=== PATIENT | female | born 1965 | race Caucasian/White ===

== ENCOUNTER 2021-06-11 09:04 | Emergency (ER) | payer OTHER ==
[~2021-06-11] VITALS: Ht 170.2 cm; Wt 58.1 kg
[2021-06-11 09:30] VITALS: BP 147/80
[2021-06-11 09:54] VITALS: BP 143/63
[2021-06-11 11:00] VITALS: BP 135/69
--- NOTE | 2021-06-11 11:39 | ER.PDOC ---
General Chief Complaint: Home Positive COVID test Stated Complaint: COUGH/CONGESTION Time seen by MD: 11:32 Source: patient Exam Limitations: no limitations History of Present Illness Initial Comments Cough and congestion for 3 days. Patient had a home positive Covid test and is requesting monoclonal antibody infusion. No fever, chills or shortness of br eath. Timing/Duration: gradual Severity: moderate Associated Symptoms: runny nose, cough Constitutional: no symptoms reported EENTM: see HPI Respiratory: see HPI Cardiovascular: no symptoms reported Gastrointestinal: no symptoms reported All Other Systems: Reviewed and Negative Past Medical History Medical History: other Surgical History: no surgical history Family History Significant Family History: no pertinent family hx Social History Smoking: non-smoker Alcohol Use: none Drug Use: none Physical Exam General Appearance: alert, no distress Nose: nose nml Throat: pharynx nml, airway nml Neck: nml inspection, supple Respiratory: no resp.distress, breath sounds nml Abdomen: non-tender, no organomegaly CVS: reg rate & rhythm, heart sounds nml Skin: color nml, no rash, warm/dry Extremities: non-tender, nml ROM, no pedal edema NEURO/PSYCH: oriented x 3, CN's nml as tested, motor nml, sensation nml, mood/a ffect nml Results/Orders Results/Orders Orders - LYLE VALENTE MD Covid19 Antigen Varsha Ramona (06/11/21 09:54) Covid Resp Lundberg (06/11/21 10:33) Ondansetron Hcl/Pf (Zofran) (06/11/21 11:54) Bamlanivimab (Bamlanivimab (Eua))... (06/11/21 12:00) Vital Signs Date Time Temp Pulse Resp B/P (MAP) Pulse Ox O2 Delivery O2 Flow Rate FiO2 06/11/21 09:54 98.7 98 20 143/63 (89) 91 Nasal Canula 2.00 06/11/21 09:30 98.7 98 20 91 06/11/21 09:30 98.7 98 20 Administered Medications Medications (Trade) Dose Ordered Sig/Rosario Route PRN Reason Start Time Stop Time Status Last Admin Dose Admin Bamlanivimab 700 mg/Etesevimab 1400 mg/Sodium Chloride 110 ml @ 220 mls/hr OT ONCE IV 06/11/21 12:00 06/11/21 12:29 DC 06/11/21 12:20 220 MLS/HR Laboratory Tests Test 06/11/21 09:57 06/11/21 10:36 SARS-CoV-2 Antigen (Rapid) NEGATIVE (NEGATIVE) Nasal Adenovirus (PCR) NotDetected (NotDetected) Nasal Coronavirus Type 229E (PCR) NotDetected (NotDetected) Nasal Coronavirus Type HKU1 (PCR) NotDetected (NotDetected) Nasal Coronavirus Type NL63 (PCR) NotDetected (NotDetected) Nasal Coronavirus Type OC43 (PCR) NotDetected (NotDetected) Nasal Enterovirus/Rhinovirus (PCR) NotDetected (NotDetected) Nasal Influenza Type A (H1) (PCR) NotDetected (NotDetected) Nasal Influenza Type A (H3) (PCR) NotDetected (NotDetected) Nasal Swab Influenza Virus B (PCR) NotDetected (NotDetected) Nasal Parainfluenza Type 1 (PCR) NotDetected (NotDetected) Nasal Parainfluenza Type 2 (PCR) NotDetected (NotDetected) Nasal Parainfluenza Type 3 (PCR) NotDetected (NotDetected) Nasal Parainfluenza Type 4 (PCR) NotDetected (NotDetected) Nasal Resp Syncytial Virus (PCR) NotDetected (NotDetected) Nasal Bordetella pertussis DNA (PCR NotDetected (NotDetected) Nasal Chlamydophila pneumoniae (PCR NotDetected (NotDetected) Nasal Human Metapneumovirus (PCR) NotDetected (NotDetected) Nasal Mycoplasma pneumoniae (PCR) NotDetected (NotDetected) Nasal SARS-CoV-2 (PCR) DETECTED (NotDetected) Influenza Type A (H1N1/09) (PCR) NotDetected (NotDetected) Progress Progress Covid test is positive and patient received Bam infusion after she was counseled. ER DEPART Departure Time of Disposition: 13:33 Disposition: 01 HOME / SELF CARE / HOMELESS Impression: Primary Impression: COVID-19 virus infection Condition: Stable Referrals: PCP,UNKNOWN (PCP) PRIMARY CARE PROVIDER Additional Instructions: Sukhjinder-Wolf Prednisone Vitamin C, D and zinc [id number] as directed Self quarantine at home for 14 days Follow-up with your PCP in 1 week Return to ED if worsening symptoms or concerns Duration or Time Spent with Pa: 20 min LYLE VALENTE MD Jun 11, 2021 11:39
[2021-06-11] MEDS ORDERED: ZOFRAN ONE (11:54)
[2021-06-11 12:15] VITALS: BP 131/68
[2021-06-11] MEDS: BAMLANIVIMAB (EUA) 700 MG, ETESEVIMAB (EUA) 1,400 MG in NS 50ML 50 ML IV ONE (12:20)
[2021-06-11 13:40] VITALS: BP 125/60
== END 2021-06-11 13:40 | disposition home or self-care (01) ==
LOC: ER 09:04
DX: U07.1 COVID-19 (principal)
CPT/HCPCS: 87426; 87633; 99285; J2405; M0245; Q0245; Q0239